=== PATIENT | male | born 1980 | race African-American/Black ===

== ENCOUNTER 2022-04-02 15:39 | Inpatient (IN) | payer MEDICAID, OTHER ==
[~2022-04-02] VITALS: Ht 175.3 cm; Wt 63.5 kg
[2022-04-02] MEDS ORDERED: LIDOCAINE HCL 1% 20 ML VIAL ONE (16:03)
[2022-04-02] MEDS ORDERED: LIDOCAINE HCL 1% 20 ML VIAL TP ONE (16:15)
--- NOTE | 2022-04-02 16:45 | NUR ---
PT IS IN ROOM #2B. DR SILVERIO EVALUATED THE PT.
--- NOTE | 2022-04-02 17:43 | NUR ---
[facility] ([phone]) WAS CALLED TO TRANSFER PT BACK TO HIS NURSING FACILITY . ETA IS 1 HOUR. PT IS RESTING IN BED COMFORTABLY NO S/S OF DISTRESS.
--- NOTE | 2022-04-02 18:54 | NUR ---
PT WAS TRANSFERED TO [facility]. REPORT WAS GIVEN TO AMBULANCE AM[facility] AND TO [facility].
--- NOTE | 2022-04-02 19:00 | NUR ---
Ambulance at bedside to take patient back [facility]
--- NOTE | 2022-04-02 19:05 | NUR ---
Sinus tachycardia noted. HR of 130s-140s. MD notified.
--- NOTE | 2022-04-02 19:10 | NUR ---
Per Dr Gutiérrez, patient not stable to be discharged at the moment.
[2022-04-02] MEDS ORDERED: IV NORMAL SALINE 1000 ML BAG IV ONE (19:30)
--- NOTE | 2022-04-02 19:30 | NUR ---
Perineal care done. stage 3 ulcer noted on the LT hip and stage 2 ulcer on the sacrum
[2022-04-02 20:13] LABS: HEMATOCRIT 41.3 % (36.7-47.1); MEAN CORPUSCULAR HEMOGLOBIN 27.4 uug (23.8-33.4); MEAN CORPUSCULAR VOLUME 81.8 fL (73.0-96.2); PLATELET COUNT (AUTO) 237 K/uL (152-348)
[2022-04-02 20:19] LABS: *BILIRUBIN,URIN NEGATIVE (NEGATIVE); *BLOOD, URINE NEGATIVE (NEGATIVE); *CLARITY,URINE CLEAR (CLEAR); *COLOR,URINE YELLOW (YELLOW); *KETONES,URINE 1+ (NEGATIVE); *UROBILINOGEN,URINE 0.2 E.U./dl (NORMAL); LEUKOCYTE ESTERASE ,URINE NEGATIVE (NEGATIVE); NITRITE, URINE NEGATIVE (NEGATIVE); UGLUCOSE NEGATIVE (NEGATIVE)
[2022-04-02 20:38] LABS: ALANINE AMINOTRANSFERASE 56 U/L (16-63); ALKALINE PHOSPHATASE 87 U/L (50-136); ASPARTATE AMINOTRANSFERASE 27 U/L (15-37); BILIRUBIN,DIRECT 0.1 mg/dL (0.0-0.2); BILIRUBIN,TOTAL 0.4 mg/dL (0.2-1.0); CARBON DIOXIDE 26 mmol/L (21-32); CHLORIDE 101 mmol/L (98-107); CREATININE 0.7 mg/dL (0.6-1.3); GLUCOSE 106 mg/dL (74-106); POTASSIUM 3.3 mmol/L (3.5-5.1); TOTAL PROTEIN, SERUM 9.2 g/dL (6.4-8.2); UREA NITROGEN, BLOOD 18 mg/dL (7-18)
--- NOTE | 2022-04-02 21:40 | NUR ---
Called [facility] for panel call. Dr. Washington conference producer. Waiting for call back.
--- NOTE | 2022-04-02 22:13 | NUR ---
Attempted to notify Stephanie Monreal (mother) of patients admission. Unable to reach her, phone not accepting calls at this time.
--- NOTE | 2022-04-02 22:15 | NUR ---
Called [facility] for panel call. Awaiting for Dr Washington to call
--- NOTE | 2022-04-02 22:20 | NUR ---
Patient has been accepted by Dr Washington
[2022-04-02] MEDS ORDERED: ACETAMINOPHEN 325 MG TABLET GT PRN (22:30)
[2022-04-02] MEDS ORDERED: MORPHINE SULFATE 2 MG/1 ML DISP.SYRIN IV PRN (22:30)
[2022-04-02] MEDS ORDERED: ONDANSETRON 4 MG/2 ML VIAL IV PRN (22:30)
--- NOTE | 2022-04-02 22:35 | NUR ---
Admission report received from ER nurse Coreen.
--- NOTE | 2022-04-02 22:41 | NUR ---
Report given to Deborah ROSE.
[2022-04-02] MEDS ORDERED: ACET325T53 GT (22:42)
[2022-04-02] MEDS ORDERED: ZONI100C31 GT (22:42)
[2022-04-02] MEDS ORDERED: FAMO20TA8 GT (22:42)
[2022-04-02] MEDS ORDERED: MULT-594 GT (22:42)
[2022-04-02] MEDS ORDERED: SENN-148 GT (22:42)
[2022-04-02] MEDS ORDERED: NA P133E RC (22:42)
[2022-04-02] MEDS ORDERED: BISA10SU61 RC (22:42)
[2022-04-02] MEDS ORDERED: FERR220S6 GT (22:42)
--- NOTE | 2022-04-02 22:50 | NUR ---
Per Dr Gutiérrez, Dr Washington stated ok to admit patient to TELE
--- NOTE | 2022-04-02 23:11 | NUR ---
Patient arrived on the floor via gurney, accompanied by 2 ER nurse. Awake, alert and respond to few questions answerable by yes or no. Denies any pain/discomforts at this time. Transferred to bed with 4 people assist. Routine admission care done. Plan of care initiated.
--- NOTE | 2022-04-02 23:21 | NUR ---
Patient transfered via gurney to third floor Room 315. Alva ROSE aware of pts arrival.
[2022-04-03 00:49] VITALS: BP 124/79
[2022-04-03 04:00] VITALS: BP 109/71
[2022-04-03] MEDS ORDERED: PIPERACILLIN SODIUM/TAZOBACTAM 3.375 G in IV DEXTROSE 5% 50 ML IV ONE (05:30)
[2022-04-03] MEDS ORDERED: PIPERACILLIN SODIUM/TAZO 3.375 GM VIAL ONE (06:06)
--- NOTE | 2022-04-03 06:40 | NUR ---
Started on antibiotic IV Zosyn 3.375 as ordered for possible infection. No s/s of adverse reaction noted at this time. Made comfortable. No acute distress .
[2022-04-03 07:29] LABS: HEMATOCRIT 36.7 % (36.7-47.1); MEAN CORPUSCULAR HEMOGLOBIN 27.6 uug (23.8-33.4); MEAN CORPUSCULAR VOLUME 83.6 fL (73.0-96.2); PLATELET COUNT (AUTO) 220 K/uL (152-348)
--- NOTE | 2022-04-03 08:00 | NUR ---
RECEIVED PATIENT IN BED AWAKE MAKES GOOD EYE CONTACT BUT IS NON VERBAL AND CONTRACTED ON ROOM AIR WITH NO SOB AT THIS TIME TELE IS ST REMAIN ON ATB ORDERED WITH NO ADVERSE OR ALLERGIC REACTIONS AT THIS TIME.HE HAS CONTRACTED UPPER AND LOWER EXT TURNED AND REPOSITIONED Q2H MAX ASSIST FOR ALL ADL MADE COMFORTABLE WILL CONTINUE TO OBSERVE.
[2022-04-03 08:05] LABS: ALANINE AMINOTRANSFERASE 49 U/L (16-63); ALKALINE PHOSPHATASE 83 U/L (50-136); ASPARTATE AMINOTRANSFERASE 26 U/L (15-37); BILIRUBIN,TOTAL 0.6 mg/dL (0.2-1.0); CARBON DIOXIDE 24 mmol/L (21-32); CHLORIDE 104 mmol/L (98-107); CHOLESTEROL 97 mg/dL (<200); CREATININE 0.6 mg/dL (0.6-1.3); GLUCOSE 108 mg/dL (74-106); HDL CHOLESTEROL 45 mg/dL (40-60); MAGNESIUM 1.8 mg/dL (1.8-2.4); PHOSPHOROUS 3.3 mg/dL (2.5-4.9); POTASSIUM 3.7 mmol/L (3.5-5.1); TOTAL PROTEIN, SERUM 8.1 g/dL (6.4-8.2); TRIGLYCERIDES 33 MG/DL (30-150); UREA NITROGEN, BLOOD 15 mg/dL (7-18)
[2022-04-03 08:11] LABS: IRON, SERUM 70 ug/dL (50-175)
[2022-04-03 08:23] LABS: THYROID STIMULATING HORMONE 0.427 mIU/mL (0.358-3.740)
[2022-04-03] MEDS: VANCOMYCIN IV 1,000 MG in IV DEXTROSE 5% 250 ML IV SCH ×2 (08:50→21:54)
[2022-04-03] MEDS: PANTOPRAZOLE SODIUM 40 MG VIAL IV SCH (08:51)
--- NOTE | 2022-04-03 11:00 | NUR ---
PATIENT IS FOR CTA ANGIO AND HAS A GAUGE 22 ON HIS FOOT HE IS A HARD STICK NEEDS MIDLINE MD NOTIFIED CALLED PATIENTS SISTER AND MOTHER AT THE PHONE NUMBER PROVIDED TO OBTAIN A TELEPHONE CONSCENT IS UNABLE TO REACH EITHER ONE OF THEM THE MOTHER IS NOT ACCEPTING CALLS AND THE SISTERS PHONE NUMBER IS DISCONNECTED.CALLED AND NOTIFIED DR RUIZ AND HE STATED THAT HE WILL SIGN THE CONSCENT FOR THE CONTRAST ADMINISTRATION AWAITING FOR THE MIDLINE INSERTION.
--- NOTE | 2022-04-03 11:12 | NUR ---
WOUND CARE CONSULT: PT PRESENTS WITH MULTIPLE AREAS OF SCARRING, SACRAL AND LEFT HIP STAGE 4 PRESSURE ULCERS AND SUTURED LEFT EYEBROW LACERATION, PRESENT ON ADMISSION. RECOMMENDATIONS MADE FOR SKIN PROTECTION AND WOUND CARE. DISCUSSED WITH NURSING STAFF. PT NOTED TO HAVE CONTRACTED LOWER EXTREMITIES. PT ALSO NOTED TO BE SCRATCHING AT HIS LEFT HIP WOUND. RN NOTIFIED. SURGICAL CONSULT CALLED TO DR ADILIA AYOUB MD IN AGREEMENT WITH PLAN OF CARE. FIRST STEP LOW AIRLOSS MATTRESS IS ON ORDER. Addendum: 04/03/22 at 1114 by BORIS HAMMONDS RN Amended: Links added.
[2022-04-03 11:35] VITALS: BP 113/80
[2022-04-03] MEDS: PIPERACILLIN SODIUM/TAZOBACTAM 3.375 G in IV DEXTROSE 5% 50 ML IV SCH ×2 (11:44→17:22)
--- NOTE | 2022-04-03 12:16 | NUR ---
MIDLINE INSERTED LEFT UPPER ARM BY ARLETTE AGUILAR AND HE ALSO SIGNED THE CONSCENT FOR THE CTA WILL NOTIFY THE RADIOLOGY DEPT THAT PATIENT IS READY.
--- NOTE | 2022-04-03 12:25 | NUR ---
CALLED RADIOLOGY AND NOTIFIED THEM THAT THE MIDLINE HAS BEEN PLACED AND CONSCENT HAS BEEN SIGNED BY ARLETTE AGUILAR SPOKE WITH [facility] WILL BE HERE SOON TO TAKE THE PATIENT.
--- NOTE | 2022-04-03 12:49 | NUR ---
PATIENT PICKED UP BY BED TO RADIOLOGY FOR THE CTA ORDERED.
[2022-04-03] MEDS ORDERED: SWABABLE VALVE TRANSFER SET EA MC ONE (12:56)
[2022-04-03] MEDS ORDERED: IV NORMAL SALINE 250 ML IV ONE (12:56)
[2022-04-03] MEDS ORDERED: IOHEXOL 350 100 ML INFUS..BTL ONE (12:58)
--- NOTE | 2022-04-03 13:15 | NUR ---
PATIENT RETURNED FROM RADIOLOGY S/P CTA ORDERED BACK IN ROOM AT THIS TIME
[2022-04-03] MEDS: THERAHONEY GEL 1.5 OZ TUBE TOP SCH (13:17)
[2022-04-03] MEDS: NEOMY/BACITRAC/POLYMI OINT 28.35 GM TUBE TOP SCH (13:17)
[2022-04-03] MEDS: OSMOLITE 1.2 CAL 1,000 ML LIQUID GT PRN (13:29)
[2022-04-03 16:00] VITALS: BP 133/76
[2022-04-03] MEDS ORDERED: FLEET ENEMA 133 ML BOTTLE RC PRN (17:00)
[2022-04-03] MEDS ORDERED: BISACODYL 10 MG SUPP.RECT RC PRN (17:00)
[2022-04-03] MEDS: ZONISAMIDE 100 MG CAPSULE GT SCH (17:21)
--- NOTE | 2022-04-03 18:00 | NUR ---
GT FEEDINGS WITH [employer] REMAINS IN PROGRESS ORDERED WITH NO GASTRIC RESIDUAL H2O FLUSHES XANDER WELL TURNED AND REPOSITIONED Q2H AWAKE MAKES GOOD EYE CONTACT BUT NON VERBAL AND ALL NEEDS ANTICIPATED AND SATISFIED NO DISTRESS AT THIS TIME
[2022-04-03 20:00] VITALS: BP 108/58
[2022-04-04] MEDS: PIPERACILLIN SODIUM/TAZOBACTAM 3.375 G in IV DEXTROSE 5% 50 ML IV SCH ×5 (00:06→23:12)
[2022-04-04 04:00] VITALS: BP 109/65
[2022-04-04 06:24] LABS: HEMATOCRIT 36.4 % (36.7-47.1); MEAN CORPUSCULAR HEMOGLOBIN 27.8 uug (23.8-33.4); MEAN CORPUSCULAR VOLUME 84.2 fL (73.0-96.2); PLATELET COUNT (AUTO) 169 K/uL (152-348)
[2022-04-04 06:32] LABS: CARBON DIOXIDE 22 mmol/L (21-32); CHLORIDE 104 mmol/L (98-107); CREATININE 0.7 mg/dL (0.6-1.3); GLUCOSE 131 mg/dL (74-106); MAGNESIUM 1.8 mg/dL (1.8-2.4); PHOSPHOROUS 3.4 mg/dL (2.5-4.9); POTASSIUM 3.9 mmol/L (3.5-5.1); UREA NITROGEN, BLOOD 13 mg/dL (7-18)
[2022-04-04] MEDS: OSMOLITE 1.2 CAL 1,000 ML LIQUID GT PRN ×2 (06:58→23:25)
[2022-04-04] MEDS ORDERED: Medication Not On Formulary EA (Multivitamins (Multivitamin) 1 EACH) GT SCH (09:00)
[2022-04-04] MEDS ORDERED: Medication Not On Formulary EA (Ferrous Sulfate 7.5 ML) GT SCH (09:00)
[2022-04-04] MEDS ORDERED: FERROUS SULFATE 300 MG/5 ML LIQUID UDC GT SCH (09:00)
[2022-04-04] MEDS: ZONISAMIDE 100 MG CAPSULE GT SCH ×2 (09:03→17:45)
[2022-04-04] MEDS: FERROUS SULFATE 300 MG/5 ML LIQUID UDC GT SCH (09:03)
[2022-04-04] MEDS: MULTIVITAMINS,THERAPEUTIC TABLET GT SCH (09:03)
[2022-04-04] MEDS: PANTOPRAZOLE SODIUM 40 MG VIAL IV SCH (09:03)
[2022-04-04] MEDS: SENNOSIDES 1 TABLET GT SCH (09:04)
[2022-04-04] MEDS: THERAHONEY GEL 1.5 OZ TUBE TOP SCH (09:05)
[2022-04-04] MEDS: NEOMY/BACITRAC/POLYMI OINT 28.35 GM TUBE TOP SCH (09:06)
[2022-04-04 11:51] VITALS: BP 113/66
[2022-04-04] MEDS: VANCOMYCIN IV 1,000 MG in IV DEXTROSE 5% 250 ML IV SCH (13:21)
[2022-04-04 15:24] VITALS: BP 104/58
[2022-04-04 20:00] VITALS: BP 101/70
[2022-04-05] MEDS: VANCOMYCIN IV 1,000 MG in IV DEXTROSE 5% 250 ML IV SCH (01:37)
[2022-04-05 04:08] VITALS: BP 101/70
[2022-04-05] MEDS: PIPERACILLIN SODIUM/TAZOBACTAM 3.375 G in IV DEXTROSE 5% 50 ML IV SCH ×2 (05:31→13:06)
[2022-04-05 06:59] LABS: HEMATOCRIT 37.9 % (36.7-47.1); MEAN CORPUSCULAR HEMOGLOBIN 27.7 uug (23.8-33.4); PLATELET COUNT (AUTO) 215 K/uL (152-348)
[2022-04-05] MEDS ORDERED: PANTOPRAZOLE ORAL SUSPENSION 40 MG SUSPDR.PKT GT SCH (07:15)
[2022-04-05 07:23] LABS: CARBON DIOXIDE 24 mmol/L (21-32); CHLORIDE 104 mmol/L (98-107); CREATININE 0.7 mg/dL (0.6-1.3); GLUCOSE 97 mg/dL (74-106); PHOSPHOROUS 3.6 mg/dL (2.5-4.9); POTASSIUM 4.1 mmol/L (3.5-5.1); UREA NITROGEN, BLOOD 11 mg/dL (7-18)
[2022-04-05] MEDS: FERROUS SULFATE 300 MG/5 ML LIQUID UDC GT SCH (10:51)
[2022-04-05] MEDS: ZONISAMIDE 100 MG CAPSULE GT SCH (10:51)
[2022-04-05] MEDS: SENNOSIDES 1 TABLET GT SCH (10:52)
[2022-04-05] MEDS: MULTIVITAMINS,THERAPEUTIC TABLET GT SCH (10:52)
[2022-04-05] MEDS: NEOMY/BACITRAC/POLYMI OINT 28.35 GM TUBE TOP SCH (10:52)
[2022-04-05] MEDS: THERAHONEY GEL 1.5 OZ TUBE TOP SCH (10:53)
[2022-04-05 11:27] VITALS: BP 102/74
[2022-04-05] MEDS ORDERED: PIPE3.3710 IV (13:31)
== END 2022-04-05 15:20 | DRG 201 ==
LOC: ER 15:39 → TELE3 22:18 → MEDSURG3 04-04 08:04
PROVIDERS: ADMIT Nurse Practitioner Family; ATTEND Nurse Practitioner Family
PROC: B547ZZA Ultrasonography of Left Subclavian Vein, Guidance (ICD-10-PCS; principal; 2022-04-03)
PROC: 05H633Z Insertion of Infusion Device into Left Subclavian Vein, Percutaneous Approach (ICD-10-PCS; principal; 2022-04-03)
DX: R00.0 Tachycardia, unspecified (principal); G82.50 Quadriplegia, unspecified; L89.154 Pressure ulcer of sacral region, stage 4; L89.224 Pressure ulcer of left hip, stage 4; R65.10 Systemic inflammatory response syndrome (SIRS) of non-infectious origin without acute organ dysfunction; S09.90XA Unspecified injury of head, initial encounter; D57.1 Sickle-cell disease without crisis; S01.01XA Laceration without foreign body of scalp, initial encounter; E87.6 Hypokalemia; G40.909 Epilepsy, unspecified, not intractable, without status epilepticus; I10 Essential (primary) hypertension; I25.10 Atherosclerotic heart disease of native coronary artery without angina pectoris; M19.90 Unspecified osteoarthritis, unspecified site; R13.10 Dysphagia, unspecified; Z20.822 Contact with and (suspected) exposure to COVID-19; Z93.1 Gastrostomy status; W19.XXXA Unspecified fall, initial encounter; Y93.9 Activity, unspecified; S01.112A Laceration without foreign body of left eyelid and periocular area, initial encounter; Y92.129 Unspecified place in nursing home as the place of occurrence of the external cause; Z86.73 Personal history of transient ischemic attack (TIA), and cerebral infarction without residual deficits; D72.829 Elevated white blood cell count, unspecified; Z74.01 Bed confinement status
CPT/HCPCS: 36415; 70450; 71045; 71275; 83550; 83605; 83735; 84100; 84443; 84484; 85025; 87040; 87400; 93005; A4663; A6209; A6213; C9113; G0378; J2543; J3370; J3490; J7040; J7050; J8499; Q9967

== ENCOUNTER 2024-04-25 11:22 | Emergency (ER) | payer OTHER ==
[~2024-04-25] VITALS: Ht 165.1 cm; Wt 59.0 kg
[~2024-04-25 11:22] MED LIST: ACET325T53 GT; BISA10SU61 RC; FAMO20TA8 GT; FERR220S6 GT; MULT-594 GT; NA P133E RC; PIPE3.3710 IV; SENN-148 GT; ZONI100C31 GT
[2024-04-25] MEDS ORDERED: DIATR MEGLU/DIATRIZOATE SODIUM 30 ML BOTTLE ONE (11:35)
[2024-04-25] MEDS: DIATR MEGLU/DIATRIZOATE SODIUM 120 ML BOTTLE PO ONE (12:16)
[2024-04-25 12:21] VITALS: BP 111/64; O2SAT 98
== END 2024-04-25 12:23 ==
LOC: ER 11:36
DX: K94.29 Other complications of gastrostomy (principal); D57.1 Sickle-cell disease without crisis; G40.909 Epilepsy, unspecified, not intractable, without status epilepticus; G82.50 Quadriplegia, unspecified; I11.9 Hypertensive heart disease without heart failure; I25.10 Atherosclerotic heart disease of native coronary artery without angina pectoris; K21.9 Gastro-esophageal reflux disease without esophagitis; Z86.73 Personal history of transient ischemic attack (TIA), and cerebral infarction without residual deficits
CPT/HCPCS: 99284; 43762; 74018; Q9963; A4606; A4663